=== PATIENT | female | born 1960 | race Caucasian/White ===

== ENCOUNTER 2016-10-13 17:52 | Emergency (ER) | payer BC ==
[2016-10-13 18:14] VITALS: BP 139/83
[2016-10-13] MEDS ORDERED: Famotidine IV* 10 MG/ML 2 ML (20 mg) IV SLOW PU ONE (18:25)
[2016-10-13] MEDS ORDERED: NS 0.9% 1000 ML* 1,000 ML BOLUS ONE (18:26)
[2016-10-13] MEDS ORDERED: Ondansetron INJ* 2 MG/ML VIAL IV ONE (18:26)
--- NOTE | 2016-10-13 18:27 | UC ---
Abdominal Pain Female HPI - HPI Summary HPI Summary: 56 yo female with onset of epigastric pain about noon today n/v x 2 no f/c had less severe episode yesterday on and off spells x months - History of Current Complaint Chief Complaint: UCAbdominalPain Stated Complaint: ABDOMINAL PAIN Time Seen by Provider: 10/13/16 18:07 Hx Obtained From: Patient Onset/Duration: Sudden Onset, Lasting Hours Timing: Constant Severity Initially: Moderate Severity Currently: Moderate Pain Intensity: 6 Pain Scale Used: 0-10 Numeric Location: Epigastric Radiates: Yes Radiates to: Back Character: Colicy, Dull Aggravating Factor(s): Nothing Alleviating Factor(s): Nothing Associated Signs and Symptoms: Positive: Back Pain, Nausea, Vomiting Allergies/Adverse Reactions: Allergies Allergy/AdvReac Type Severity Reaction Status Date / Time Latex Allergy Severe SEVERE RASH Verified 10/13/16 18:07 Penicillins Allergy Severe Blisters Verified 10/13/16 18:07 Sulfa Antibiotics Allergy Severe RASH/BLOTCH Verified 10/13/16 18:07 ES TORITO Inhibitors Allergy CONSTANT Verified 10/13/16 18:07 COUGHING ESPECIALLY AT NIGHT Ampicillin Allergy Blisters Verified 10/13/16 18:07 Niacin Allergy LARGE Verified 10/13/16 18:07 BLOTCHES, SEVERE SKIN ITCHING ANY CILLINS Allergy Severe Blisters Uncoded 01/10/15 09:41 Home Medications: Home Medications FLUoxetine CAP* [Prozac CAP*] 40 mg PO DAILY 10/13/16 [History Confirmed ] Ranitidine TAB (NF) [Zantac TAB (NF)] 1 tab PO PRN 10/13/16 [History] PMH/Surg Hx/FS Hx/Imm Hx Previously Healthy: Yes Cardiovascular History Of: Reports: Hypertension - CONTROL WITH MEDS GI/ History Of: Reports: Kidney Stones - YEARS AGO Psychological History Of: Reports: Anxiety - CONTROL WITH MEDS, Depression - CONTROL WITH MEDS Cancer History Of: Denies: Breast Cancer - Surgical History Surgical History: Yes Surgery Procedure, Year, and Place: SURGERIES FOR ENDOM[place]RIOSIS, [place]. 1994 HYSTERECTOMY WITH BILATERAL S & O, [facility] [place]. 2011 CYST REMOVED FROM LEFT RING FINGER, [facility]. 2014 COLONOSCOPY, [facility] - Family History Known Family History: Positive: Hypertension - Social History Alcohol Use: None Substance Use Type: None Smoking Status (MU): Never Smoked Tobacco Review of Systems Constitutional: Negative Skin: Negative Eyes: Negative ENT: Negative Respiratory: Negative Cardiovascular: Negative Gastrointestinal: Abdominal Pain, Vomiting Genitourinary: Negative Motor: Negative Neurovascular: Negative Musculoskeletal: Negative Neurological: Negative Psychological: Negative All Other Systems Reviewed And Are Negative: Yes Physical Exam Triage Information Reviewed: Yes Appearance: Well-Appearing, No Pain Distress, Well-Nourished Vital Signs: Initial Vital Signs Temp 98.5 F 10/13/16 18:10 Pulse 96 10/13/16 18:10 Resp 18 10/13/16 18:10 BP 139/83 10/13/16 18:10 Pulse Ox 98 10/13/16 18:10 Eyes: Positive: Conjunctiva Clear ENT: Positive: Hearing grossly normal, Pharynx normal. Negative: Nasal congestion, Nasal drainage, Trismus, Muffled/hoarse voice Neck: Positive: Supple, Nontender, No Lymphadenopathy Respiratory: Positive: Lungs clear, Normal breath sounds, No respiratory distress, No accessory muscle use Cardiovascular: Positive: RRR, No Murmur Abdomen Description: Positive: No Organomegaly, Soft. Negative: Nontender, CVA Tenderness (R), CVA Tenderness (L), Guarding Bowel Sounds: Positive: Present Neurological: Positive: Alert Psychological Exam: Normal Skin Exam: Normal Re-Evaluation - Re-Evaluation First Eval Change: Improved - STATES SHE IS MUCH IMPROVED AND WANT TO GO HOME Abd Pain Female Course/Dx - Differential Dx/Diagnosis Provider Diagnoses: abdominal pain. suspect gall bladder disease Discharge - Discharge Plan Condition: Stable Disposition: HOME Prescriptions: Ondansetron TAB* [Zofran Tab*] 4 mg PO Q6H PRN #10 tab PRN Reason: Nausea Patient Education Materials: Gallstones (ED) Referrals: William Alanis MD [Medical Doctor] - As Soon As Possible Lissy De La Cruz NP [Primary Care Provider] - 1 Day () Additional Instructions: BLOOD WORK IS PENDING CALL YOUR PROVIDER IN AM AND LET THEM KNOW HE NOTED GALLSTONES ON YOUR XRAY TO ER FOR INCREASED PAIN PERSISTENT VOMITING FEVER DR ALANIS IS THE SURGEON EXTERNAL GRINDER TOOL Images Front/Back of Body, Lg ([place]): [address] [place], [place] [address]
--- NOTE | 2016-10-13 19:07 | RAD ---
Indication: Epigastric pain. Flat plate of the abdomen demonstrates no free air. No dilated loops of bowel are noted. Layer of calcifications are noted in the right upper quadrant presumably from tiny gallstones. IMPRESSION: Likely layering of small gallstones. Bowel gas pattern is otherwise unremarkable.
[2016-10-13] MEDS ORDERED: Ketorolac INJ* 30 MG/ML 1 ML VIAL IV ONE (19:12)
[2016-10-13] MEDS ORDERED: Ondansetron ODT TAB* 4 MG PO ONE (20:01)
[2016-10-14 11:33] LABS: Hematocrit 41 % (35-47); Hemoglobin 13.4 g/dl (12.0-16.0); Mean Corpuscular HGB Conc 33 g/dl (31-36); Mean Corpuscular Hemoglobin 29 pg (27-31); Mean Corpuscular Volume 87 fL (80-97); Mean Platelet Volume 10 um3 (7.4-10.4); Red Blood Count 4.69 10^6/ul (4.0-5.4); Red Cell Distribution Width 13 % (10.5-15); White Blood Count 8.8 10^3/ul (3.5-10.8)
[2016-10-14 12:05] LABS: Albumin 4.7 g/dL (3.2-5.2); BUN/Creatinine Ratio 26.9 (8-20); Calcium 9.8 mg/dL (8.6-10.3); EGFR African American 79.6 (>60); EGFR Non-African American 61.9 (>60); Globulin 2.5 g/dL (2-4); Potassium 4.8 mmol/L (3.5-5.0); Total Bilirubin 1.8 mg/dL (0.2-1.0); Total Protein 7.2 g/dL (6.4-8.9)
== END 2016-10-13 20:22 | disposition home or self-care (01) ==
LOC: UCEAST 17:52
DX: R10.13 Epigastric pain (principal); R11.2 Nausea with vomiting, unspecified; Z88.0 Allergy status to penicillin; Z88.2 Allergy status to sulfonamides; Z88.8 Allergy status to other drugs, medicaments and biological substances; I10 Essential (primary) hypertension
CPT/HCPCS: 36415; 74020; 80053; 81002; 83690; 85025; 93005; 96360; 96361; 96374; 96375; 99212; A9270-GY; G0463; J1885; J2405

== ENCOUNTER 2016-10-26 11:25 | Inpatient (IN) | payer BC ==
[~2016-10-26 11:25] MED LIST: Buffered Lidocaine 1% SYRIN* 3 ML/SYR SYRINGE INTRADERM ONE; Clindamycin 900 MG IVPREMIX(* 900 MG/50 ML SDV IV ONE; Famotidine TAB* 20 MG PO ONE; GENTAMICIN ADULT IVPB ONE; Ibuprofen TAB* 800 MG PO ONE; Metoclopramide TAB* 10 MG PO ONE; NS 0.9% IVPB ONE; Sodium Citrate/Citric Acid* 15 ML UDC PO ONE
[2016-10-26] MEDS ORDERED: Famotidine TAB* 20 MG ONE (11:41)
[2016-10-26] MEDS ORDERED: Clindamycin 900 MG IVPREMIX(* 900 MG/50 ML SDV IV ONE ×3 (11:41→20:00)
[2016-10-26] MEDS ORDERED: Ibuprofen TAB* 400 MG ONE (11:41)
[2016-10-26] MEDS ORDERED: Metoclopramide TAB* 10 MG ONE (11:41)
[2016-10-26] MEDS ORDERED: Sodium Citrate/Citric Acid* 15 ML UDC ONE (11:41)
[2016-10-26] MEDS ORDERED: Bupivacaine 0.5% W/EPI SDV* 30 ML VIAL ONE ×2 (13:01→19:44)
[2016-10-26] MEDS ORDERED: Scopolamine 1.5 mg* PATCH ONE (13:06)
[2016-10-26] MEDS ORDERED: fentaNYL* 50 MCG/ML 2 ML VIAL (100 MCG VIAL) ONE (13:37)
[2016-10-26] MEDS ORDERED: Atracurium* 10 MG/ML 10 ML VIAL ONE ×2 (13:37→19:47)
[2016-10-26] MEDS ORDERED: Scopolamine 1.5 mg* PATCH TRANSDERM SCH (14:00)
[2016-10-26] MEDS ORDERED: fentaNYL* 50 MCG/ML 2 ML VIAL (100 MCG VIAL) IV PRN ×2 (14:12→22:34)
[2016-10-26] MEDS ORDERED: DiMENhydriNATE IV* 50 MG/ML VIAL IV PUSH PRN (14:12)
[2016-10-26] MEDS ORDERED: Ketorolac INJ* 30 MG/ML 1 ML VIAL IV PRN (14:12)
[2016-10-26] MEDS ORDERED: HYDROcodone/ACETAMIN 5-325 MG* 1 TAB PO PRN (14:12)
[2016-10-26] MEDS ORDERED: Atropine 1MG/ML INJ* 1 ML VIAL ONE (14:26)
[2016-10-26] MEDS ORDERED: Propofol* 10 MG/ML 20 ML BTL IV PUSH ONE ×2 (14:26→21:07)
[2016-10-26] MEDS ORDERED: Ondansetron INJ* 2 MG/ML VIAL ONE ×2 (14:26→21:07)
[2016-10-26] MEDS ORDERED: Lidocaine 2% PF* 5 ML VIAL ONE ×2 (14:26→21:07)
[2016-10-26] MEDS ORDERED: Dexamethasone IV* 4 MG/ML 1 ML (4 MG) ONE (14:26)
[2016-10-26] MEDS ORDERED: DiMENhydriNATE IV* 50 MG/ML VIAL ONE (15:18)
[2016-10-26] MEDS ORDERED: Ketorolac INJ* 30 MG/ML 1 ML VIAL ONE (15:37)
[2016-10-26] MEDS ORDERED: Morphine INJ* 2 MG/ML 1 ML SYRINGE IV PRN (16:41)
[2016-10-26] MEDS ORDERED: LORazepam INJ* 2 MG/ML 1 ML VIAL IV PUSH ONE (16:41)
[2016-10-26] MEDS ORDERED: Ondansetron INJ* 2 MG/ML VIAL IV PRN ×2 (16:41→22:34)
[2016-10-26] MEDS ORDERED: LORazepam INJ* 2 MG/ML 1 ML VIAL IV PUSH PRN (16:41)
[2016-10-26] MEDS ORDERED: Adenosine SYRINGE* 6 MG/2 ML IV PUSH ONE ×2 (17:00)
[2016-10-26 17:01] LABS: Hematocrit 34 % (35-47); Hemoglobin 11.1 g/dl (12.0-16.0); Mean Corpuscular HGB Conc 33 g/dl (31-36); Mean Corpuscular Hemoglobin 29 pg (27-31); Mean Corpuscular Volume 86 fL (80-97); Mean Platelet Volume 8 um3 (7.4-10.4); Red Blood Count 3.91 10^6/ul (4.0-5.4); Red Cell Distribution Width 12 % (10.5-15); White Blood Count 7.1 10^3/ul (3.5-10.8)
[2016-10-26 17:11] LABS: BUN/Creatinine Ratio 23.2 (8-20); Calcium 8.2 mg/dL (8.6-10.3); EGFR African American 112.4 (>60); EGFR Non-African American 87.4 (>60); Magnesium 1.5 mg/dL (1.9-2.7); Potassium 3.5 mmol/L (3.5-5.0)
[2016-10-26] MEDS ORDERED: Magnesium Sulfate 2 GM IV* 2 GM/50 ML BAG IVPB ONE (17:37)
[2016-10-26] MEDS ORDERED: KCL 10 MEQ/50 ML IVPREMIX* 10 MEQ/50 ML BAG IV SCH (18:00)
[2016-10-26 18:08] LABS: Hematocrit 29 % (35-47); Hemoglobin 9.5 g/dl (12.0-16.0)
--- NOTE | 2016-10-26 19:12 | RAD ---
INDICATION: Possible hemoperitoneum. Tachycardia. Hypotension . Status post laparoscopic cholecystectomy COMPARISON: Gallbladder sonogram October 18, 2016 TECHNIQUE: Noncontrast axial source images were acquired from the level hemidiaphragms to the symphysis pubis. Lung bases: There is mild bibasilar atelectasis. Liver: The liver is normal in size. Noncontrast imaging shows no evidence of a hepatic mass or ductal dilatation. Gallbladder: Cholecystectomy. Spleen: The spleen is normal in size. The noncontrast CT appearance is normal. Pancreas: Noncontrast imaging shows no pancreatic mass or ductal dilitation. Adrenal glands: No masses are identified. Kidneys/Bladder: There is no evidence of nephrolithiasis or CT evidence of hydronephrosis. Noncontrast imaging shows no evidence of a renal mass. The bladder is unremarkable.. Adenopathy: There is no evidence of intraperitoneal or retroperitoneal adenopathy. Evaluation is limited without oral contrast. Fluid collections: There is a large amount of perihepatic fluid which is consistent with hemorrhage. This may be partially organized consistent with a developing hematoma. There is minor extension into the right paracolic gutter. There is additional fluid in the perisplenic space and left paracolic gutter. Intraperitoneal fluid/hemorrhage is also present in the dependent portion of the pelvis. Vessels: The aorta and iliac vessels are normal in caliber. There are no significant atherosclerotic changes. The IVC appears normal Pelvic organs: There is hysterectomy. There is no adnexal mass GI tract: Evaluation of the bowel is limited without oral contrast. The stomach, small bowel, and lower GI tract appear grossly normal. There are no obstructive findings. The appendix is visualized and appears normal. Soft tissues: Soft tissue changes anterior abdomen and pelvis consistent with recent left scalp or cholecystectomy. Osseous structures: There are no acute osseous findings. IMPRESSION: SIGNIFICANT INTRA-ABDOMINAL AND INTRAPELVIC FLUID CONSISTENT WITH HEMOPERITONEUM. Findings discussed with attending surgeon following the examination.
--- NOTE | 2016-10-26 19:39 | PN ---
Progress Note - Progress Note Note: The patient developed rapid tachycardia in RR and Hospitalist was consulted. Postop Hb was 11.5. She was given additional 2 L IVF and was transferred to the ICU for monitoring. She got up to void and had syncope and I was called to assess. She was hypotensive to sBP=80-90 and tachycardic to 130-140. A repeat Hb was 9.[address] Abd/Pel without contrast was ordered. This shows hemoperitoneum with blood around the liver and spleen. Based on these findings I have discussed with the patient the plan to return to the OR for laparoscopy, possible laparotomy for control of hemorrhage. I explained the nature of the procedure, risks, benefits, alternatives, and option of no treatment. Risks explained, including, not limited to, further bleeding, infection, pain, scarring, blood clots, pneumonia, visceral injury, and risks of GETA. All her questions were answered. She states understanding and agrees to proceed.
[2016-10-26] MEDS ORDERED: Hetastarch in NS* 500 ML IV ONE (19:44)
[2016-10-26] MEDS ORDERED: KETAMINE HCL* 50 MG/ML 10 ML VIAL ONE (19:47)
[2016-10-26] MEDS ORDERED: Midazolam* 1 MG/ML 5 ML VIAL (5 MG) ONE (19:47)
[2016-10-26] MEDS ORDERED: fentaNYL* 50 MCG/ML 5 ML VIAL (250 MCG VIAL) ONE (19:47)
[2016-10-26 21:04] LABS: Hematocrit 27 % (35-47); Hemoglobin 9.1 g/dl (12.0-16.0)
[2016-10-26] MEDS ORDERED: Phenylephrine INJ* 10 MG/ML 1 ML VIAL (10 MG) ONE (21:07)
[2016-10-26] MEDS ORDERED: PROCHLORPERAZINE INJ 5 MG/ML 2 ML VIAL ONE (21:07)
[2016-10-26] MEDS ORDERED: Succinylcholine* 20 MG/ML 10 ML VIAL ONE (21:07)
[2016-10-26] MEDS ORDERED: Neostigmine Methylsulfate* 2 MG/2 ML SYRINGE ONE (21:07)
[2016-10-26] MEDS ORDERED: Glycopyrrolate IV* 0.2 MG/ML 1 ML VIAL ONE (21:07)
[2016-10-26] MEDS: Melatonin [Melatonin] 10 MG PO SCH (21:27)
[2016-10-26] MEDS ORDERED: Flumazenil* 0.1 MG/ML 5 ML MDV ONE (21:49)
[2016-10-26] MEDS ORDERED: Naloxone* 0.4 MG/ML 10 ML VIAL ONE (21:53)
[2016-10-26] MEDS ORDERED: Heparin VIAL(*) 5000 UNITS/ML VIAL (FIVE THOUSAND) SUBCUT SCH (22:00)
--- NOTE | 2016-10-26 22:06 | CONS ---
CONSULTATION REPORT: DATE OF CONSULT: 10/26/16 PRIMARY CARE PROVIDER: Lissy De La Cruz NP ATTENDING PHYSICIAN WHILE IN THE HOSPITAL: Dr. Negrito Blank (report dictated by Aniceto Mayfield NP). REQUESTING PHYSICIAN FOR CONSULT: Dr. Paulson. REASON FOR MEDICAL CONSULT: Evaluation of tachycardia. HISTORY OF PRESENT ILLNESS: I refer you to Dr. Paulson' H and P for further details. In short, Ms. Canseco is a 56-year-old female patient. She carries a history of hyperlipidemia, hypertension, anxiety, has a history of GERD and depression. She came in to Dr. Paulson' service today for an elective laparoscopic cholecystectomy. She had been seen by her primary. She had frequent gallbladder attacks over the last 7 to 8 months. A week prior to being seen on October 21, she had had some brownish urine and having an attack 6 hours and went to [facility] in [place]. She was treated with IV hydration , antiemetics. She was found to have mild elevation in her lipase and LFTs, but at that time, she was feeling better. She presented to Dr. Paulson' office after referral from her primary. It was ultimately felt that she probably passed a gallstone and it was felt that she would require laparoscopic cholecystectomy, which she underwent today with Dr. Paulson. Unfortunately, in the PACU, it was noted that her heart rate was in the 140s and we were asked to evaluate in consult. She denies having any chest pain currently. She denies having any shortness of breath. She says she has not had any cardiac symptoms such as a heart attack, stroke. She has never had any stents in her heart. She says she does not feel lightheaded. She does state that she feels very anxious. Of note, she also was given a dose of atropine in the OR. In addition to this, was also placed on scopolamine patch. Because of this tachycardia, we were asked to evaluate in consult. PAST MEDICAL HISTORY: Significant for: 1. Hyperlipidemia. 2. Hypertension. 3. Depression with anxiety. 4. Osteoarthritis. PAST SURGICAL HISTORY: She has had: 1. Hysterectomy. 2. Laparoscopies for endometriosis. 3. Appendectomy. HOME MEDICATIONS: Include: 1. Zantac 1 tablet p.o. daily as needed. 2. Melatonin 10 mg daily. 3. Ibuprofen 600 mg daily. 4. Fenofibrate 145 mg daily. 5. Prozac 40 mg daily. 6. Estradiol 0.5 mg p.o. at bedtime. 7. Vitamin D 1000 units daily. 8. Vitamin C 500 mg p.o. daily. 9. Amlodipine 5 mg p.o. daily. 10. Xanax 0.25 mg at bedtime as needed. ALLERGIES TO MEDICATIONS: Include PENICILLIN, SULFA, TORITO INHIBITOR, AMPICILLIN , NIACIN. FAMILY HISTORY: Reviewed and noncontributory. SOCIAL HISTORY: She does not smoke or drink alcohol. She is . Surrogate decision maker is her . REVIEW OF SYSTEMS: There is no documented fever. She denied having any significant weight change. There was no double vision. There is no ear discharge. She denies having any rhinorrhea. There is no sore throat. No thyroid enlargement. Denies having any chest pain. There is no orthopnea. There is no nocturnal dyspnea. There is some right upper quadrant abdominal pain. She does admit to having a little bit of nausea. There is no dysuria. No loss of consciousness. No pruritus and no skin ulcerations. Review of 14 systems completed, all others negative. PHYSICAL EXAM: Reveals vital signs of blood pressure of 120/70 with a pulse of 135, respirations 16, O2 sat 99% on 2 L, and her temperature was 97.7. Generally, at this time, Ms. Canseco is a 56-year-old female patient. She is sitting in the PACU. She does not appear to be in any acute distress. HEENT: Head atraumatic and normocephalic. Eyes: EOMs are intact. Sclerae are anicteric and not pale. Throat: Oral mucosa appears to be moist. No oropharyngeal erythema. Neck was supple. Her lungs are clear to auscultation bilaterally. Heart: Sounds S1, S2. She is tachycardic. Abdomen: Bowel sounds were hypoactive. She was tender in the right upper quadrant. She had incisions to her abdomen which were Steri-Strip'd and dry and intact. Extremities: Pulses were 2+ throughout. She is able to move all 4 extremities with 5/5 strength. Neurologically, the patient is awake, she is alert, she is oriented x3. Tongue midline. Manager [employer] are equal. No gross focal deficits. Her skin is intact. DIAGNOSTIC STUDIES/LAB DATA: From 13 of October revealed WBC of 8.8, RBC of 4.69, hemoglobin 13.4, hematocrit of 41, platelet count 318. Sodium was 140, potassium 4.0, chloride of 103, bicarb 30, BUN 23, creatinine of 0.85, glucose was 98. AST 20,. She had an EKG obtained today which showed a sinus tachycardia, rate of 131. Preop EKG shows a normal sinus rhythm with a rate of 90. There were no ST elevations or T-wave inversions noted. Old medical records were reviewed. ASSESSMENT AND PLAN: Ms. Canseco is a 56-year-old female patient coming in to Dr. Paulson' service today for an elective laparoscopic cholecystectomy. Unfortunately, postoperatively, it was noted that she was tachycardic. Hospitalist service was asked to evaluate in consult. Recommendations at this point are: 1. Status post laparoscopic cholecystectomy: I will defer the management to Dr. Paulson and his team. 2. Tachycardia: The etiology of this is multifactorial. Certainly, it could be drug related secondary to the atropine and also secondary to the scopolamine patch, could be anxiety as well as she is stating that she feels very anxious. She says that her pain is well controlled. I think at this point we will hydrate her. We will send off labs, BMP, check a magnesium, check a troponin, and we will also get a CBC as well to make sure she is not hypovolemic or bleeding. There was no report of such in the OR notes and we will continue to follow her. She did get some adenosine here in the PACU, which slowed her heart rate down, but she went back into sinus tachycardia, so we have to treat the underlying cause. I do not think there is any need for a pulmonary embolism workup at this point as she is not hypoxic or short of breath. We will need to monitor her and hydrate her and see if she calms down. I think give her a little bit of Ativan, because she is stating to me that she feels very anxious. 3. Hyperlipidemia: Continue meds as prescribed. She is on fenofibrate. 4. Hypertension: We will continue her Norvasc. 5. Depression and anxiety: Ativan p.r.n. has been ordered. We will continue her meds as prescribed. 6. Osteoarthritis: Follow with her primary. 7. DVT prophylaxis: I will defer to the primary team. I did order SCDs. 8. Code status: Full code. 9. Fluids, electrolytes, and nutrition: I will defer to the primary team. We would recommend a regular diet. TIME SPENT: On the consult was 60 minutes; greater than half the time was spent [id number] with the patient obtaining my history and physical, other half the time spent going over the plan of care with the patient and implementing plan of care. I did discuss the plan of care with my attending, Dr. Blank; he is in agreement. ANICETO MAYFIELD NP CC: Lissy De La Cruz NP; Dr. Paulson* [id number]/[facility] #: [id number] MTDD
[2016-10-26] MEDS: NS 0.9% 1000 ML* 1,000 ML IV SCH (23:10)
[2016-10-26] MEDS: KCL premix 10MEQ/50 ML x 3 RUNS IV SCH (23:42)
[2016-10-27] MEDS: KCL premix 10MEQ/50 ML x 3 RUNS IV SCH ×2 (01:23→02:33)
[2016-10-27] MEDS: Fenofibrate(NF) 145 MG TAB PO SCH ×2 (01:31→21:09)
[2016-10-27 01:56] LABS: Hematocrit 29 % (35-47); Hemoglobin 9.5 g/dl (12.0-16.0)
[2016-10-27] MEDS: Acetaminophen TAB* 325 MG PO PRN ×3 (02:39→21:08)
[2016-10-27 05:03] LABS: Hematocrit 27 % (35-47); Hemoglobin 9.2 g/dl (12.0-16.0)
[2016-10-27] MEDS: NS 0.9% 1000 ML* 1,000 ML IV SCH (08:52)
[2016-10-27] MEDS: FLUoxetine CAP* 20 MG PO SCH (08:54)
[2016-10-27] MEDS ORDERED: amLODIPine TAB* 5 MG PO SCH (09:00)
--- NOTE | 2016-10-27 10:30 | PN ---
Progress Note - Progress Note SOAP: Subjective: Mild abdominal pain. No nausea/vomiting. No CP/SOB/dizziness/palpitations. Objective: Vital Signs Temp 98.0 F 10/27/16 10:18 Pulse 105 10/27/16 10:18 Resp 18 10/27/16 10:18 BP 127/80 10/27/16 10:18 Pulse Ox 94 10/27/16 10:18 Intake & Output 10/26/16 10/27/16 10/27/16 18:59 06:59 18:59 Intake Total 1800 6750 3503 Output Total 425 2950 1275 Balance 1375 3800 2228 Weight 140 lb 144 lb 9.972 oz Intake: IV Fluids 1800 6550 3443 CLINDAMYCIN 900MG 50 HETASTARCH 500 LR 1800 3000 NS 3000 3443 Oral 200 60 Output: Urine 425 [place] 2950 1275 NAD, awake alert, sitting up in bed. Abd: incis c/d/i; soft; tender on R side. Laboratory Results - last 24 hr 10/26/16 10/26/16 10/26/16 16:28 16:28 18:00 WBC 7.1 RBC 3.91 L Hgb 11.1 L 9.5 L Hct 34 L 29 L MCV 86 MCH 29 MCHC 33 RDW 12 Plt Count 299 MPV 8 Neut % (Auto) 78.7 Lymph % (Auto) 15.2 L [place] % (Auto) 3.2 Eos % (Auto) 1.8 Baso % (Auto) 1.1 Absolute Neuts (auto) 5.6 Absolute Lymphs (auto) 1.1 Absolute Monos (auto) 0.2 Absolute Eos (auto) 0.1 Absolute Basos (auto) 0.1 Absolute Nucleated RBC 0 Nucleated RBC % 0 Sodium 140 Potassium 3.5 Chloride 105 Carbon Dioxide 27 Anion Gap 8 BUN 16 Creatinine 0.69 Est GFR ( Amer) 112.4 Est GFR (Non-Af Amer) 87.4 BUN/Creatinine Ratio 23.2 H Glucose 159 H Calcium 8.2 L Magnesium 1.5 L Troponin I 0.00 Blood Type Antibody Screen Crossmatch 10/26/16 10/26/16 10/27/16 18:00 20:55 01:50 WBC RBC Hgb 9.1 L 9.5 L Hct 27 L 29 L MCV MCH MCHC RDW Plt Count MPV Neut % (Auto) Lymph % (Auto) [place] % (Auto) Eos % (Auto) Baso % (Auto) Absolute Neuts (auto) Absolute Lymphs (auto) Absolute Monos (auto) Absolute Eos (auto) Absolute Basos (auto) Absolute Nucleated RBC Nucleated RBC % Sodium Potassium Chloride Carbon Dioxide Anion Gap BUN Creatinine Est GFR ( Amer) Est GFR (Non-Af Amer) BUN/Creatinine Ratio Glucose Calcium Magnesium Troponin I Blood Type O Negative Antibody Screen Negative Crossmatch See Detail 10/27/16 04:00 WBC RBC Hgb 9.2 L Hct 27 L MCV MCH MCHC RDW Plt Count MPV Neut % (Auto) Lymph % (Auto) [place] % (Auto) Eos % (Auto) Baso % (Auto) Absolute Neuts (auto) Absolute Lymphs (auto) Absolute Monos (auto) Absolute Eos (auto) Absolute Basos (auto) Absolute Nucleated RBC Nucleated RBC % Sodium Potassium Chloride Carbon Dioxide Anion Gap BUN Creatinine Est GFR ( Amer) Est GFR (Non-Af Amer) BUN/Creatinine Ratio Glucose Calcium Magnesium Troponin I Blood Type Antibody Screen Crossmatch Assessment: POD#1 s/p lap velia and return to OR for postop hemorrhage. No evidence for additional bleeding. Plan: Transfer to [facility]. Diet as tolerated. Ambulate. F/u additional H/H this afternoon. Possible d/c later today or in AM. D/w patient and son.
[2016-10-27 13:17] LABS: Hematocrit 26 % (35-47); Hemoglobin 8.8 g/dl (12.0-16.0)
--- NOTE | 2016-10-27 14:12 | OP ---
DATE OF OPERATION: 10/26/16 - ROOM #332 DATE OF : 56 SURGEON: Jonel Paulson MD SOLE MOLDING MACHINE OPERATOR: OSCAR Drake ANESTHESIOLOGIST: Michael Brown MD ANESTHESIA: General endotracheal. PRE-OP DIAGNOSIS: Symptomatic cholelithiasis. POST-OP DIAGNOSIS: Symptomatic cholelithiasis. OPERATIVE PROCEDURE: Laparoscopic cholecystectomy. ESTIMATED BLOOD LOSS: Minimal. IV FLUIDS: Crystalloid. SPECIMENS: Gallbladder. DRAINS: None. COMPLICATIONS: None. COUNTS: The instrument, needle, and sponge counts were correct. DESCRIPTION OF PROCEDURE: The patient was brought to the operating room, placed on table supine. Sequential compression devices were placed on both lower extremities. General anesthesia was administered. She received appropriate intravenous antibiotics. Her abdomen was prepped and draped in the usual sterile fashion. Time-out was performed. Local anesthetic was infiltrated into the skin and soft tissue surrounding the umbilicus. A transumbilical vertical incision was created using an open technique. A 5 mm trocar was placed and carbon dioxide was insufflated to a pressure of 15 mmHg. Under direct visualization, 5 mm trocars were placed in the subxiphoid position and two additional 5 mm trocars in the right upper quadrant. The initial trocar was exchanged for 12 mm trocar. The gallbladder appeared to be uninflamed. It was grasped at the fundus and retracted superiorly and the infundibulum is identified. It was grasped and retracted laterally and inferiorly. The peritoneum investing the gallbladder was incised with cautery, dissected free to reveal the infundibular-cystic duct junction as well as the cystic artery. Each structure was bluntly dissected out. Critical views obtained. The cystic artery was doubly clipped and divided. The cystic duct was doubly clipped and divided. The gallbladder was freed from its attachment to the liver bed using the cautery and staying in an avascular plane. Once the gallbladder was freed, it was placed into a retrieval bag and retrieved through the umbilical site. Inspection of the area of the dissection revealed the clips to be intact, the hemostasis was excellent. The ports were removed and carbon dioxide was released. The umbilical wound was closed with 0 Polysorb in a [id number] fashion to approximate the fascia. The skin incisions were all closed with 4-0 Monocryl in a subcuticular fashion. Steri- Strips were applied. The patient tolerated the procedure well and was extubated and transferred to recovery room in stable condition. CC: Kate Haywood MD* [id number]/[facility] #: [id number] MTDD
--- NOTE | 2016-10-27 16:28 | SURGPN ---
Subjective - Introduction -: Reports doing very well. Denies pain, N/V, fever or chills. No headache, dizziness or chest pain. Wants to go home if she could. - Medications -: Active Medications Generic Name Dose Route Start Last Admin Trade Name Freq PRN Reason Stop Dose Admin Acetaminophen 650 mg 10/26/16 16:41 10/27/16 11:24 Tylenol Tab* PO 650 mg Q4H PRN Administration FEVER/PAIN Fenofibrate 145 mg 10/26/16 21:00 10/27/16 01:31 Tricor(Nf) PO Not Given BEDTIME [facility] Protocol Fluoxetine HCl 40 mg 10/27/16 09:00 10/27/16 08:54 Prozac Cap* PO 40 mg DAILY NORA Administration Sodium Chloride 1,000 mls @ 125 mls/hr 10/26/16 16:45 10/27/16 08:52 Ns 0.9% 1000 Ml* IV 125 mls/hr PER RATE NORA Administration Lorazepam 1 mg 10/26/16 16:41 Ativan Inj* IV PUSH Q6H PRN ANXIETY Morphine Sulfate 2 mg 10/26/16 16:41 Morphine Inj (Syringe)* IV Q4H PRN PAIN - MILD Melatonin [Melatonin 10 mg 10/26/16 18:00 10/26/16 21:27 ] 10 Mg PO Not Given QPM [facility] Ondansetron HCl 4 mg 10/26/16 16:41 10/27/16 05:05 Zofran Inj* IV 4 mg Q6H PRN Administration NAUSEA Objective - Objective -: Awake and alert, sitting in bed, appears comfortable and in NAD. - Intake and Output -: Intake & Output 10/25/16 10/26/16 10/27/16 10/28/16 06:59 06:59 06:59 06:59 Intake Total 8550 4031 Output Total 3375 2275 Balance 5175 1756 Weight 144 lb 9.972 oz Intake: IV Fluids 8350 3443 CLINDAMYCIN 900MG 50 HETASTARCH 500 LR 4800 NS 3000 3443 IVPB 408 NS 408 Oral 200 180 Output: Urine 425 [place] 2950 2275 Surgical Physical Exam - Comments -: Vitals reviewed, pt afebrile. Lungs CTA bilat. Abdomen soft, non-tender and non-distended. Incisions clean, dry and intact. Ext. no edema. Assessment and Plan - Assessment -: a 56 y/o female, s/p laparoscopic cholecystectomy, complicated with post- operative bleeding, clinically stable. - Plan Surgical Plan of Care: Advance Diet, Increase Activity - Advance diet. Additional Comments: Advance diet. D/C price cath. D/C IVF and safesite IV Increase activity. Plan to d/c to home tomorrow morning.
--- NOTE | 2016-10-27 17:50 | PN ---
Subjective Date of Service: 10/27/16 Interval History: Patient seen this evening. Says she is feeling well overall. Abdomen is a little tender but has not really needed pain medications. Ambulated around the unit. Has not had BM but feels bowels moving. No fever or chills. Asking at what heart rate should she be worried is too fast. Family History: Unchanged from Admission Social History: Unchanged from Admission Past Medical History: Unchanged from Admission Objective Active Medications: Acetaminophen (Tylenol Tab*) 650 mg PO Q4H PRN Fenofibrate (Tricor(Nf)) 145 mg PO BEDTIME NORA Fluoxetine HCl (Prozac Cap*) 40 mg PO DAILY NORA Sodium Chloride (Ns 0.9% 1000 Ml*) 1,000 mls @ 125 mls/hr IV PER RATE NORA Lorazepam (Ativan Inj*) 1 mg IV PUSH Q6H PRN Morphine Sulfate (Morphine Inj (Syringe)*) 2 mg IV Q4H PRN Melatonin [Melatonin (] 10 Mg) 10 mg PO QPM NORA Ondansetron HCl (Zofran Inj*) 4 mg IV Q6H PRN Vital Signs 10/26/16 10/26/16 10/26/16 17:50 17:55 17:56 Temperature 97.6 F 97.6 F Pulse Rate 140 140 134 Respiratory 18 18 19 Rate Blood Pressure 104/85 104/85 84/45 (mmHg) O2 Sat by Pulse 96 96 96 Oximetry 10/26/16 10/26/16 10/26/16 18:00 18:01 18:04 Temperature Pulse Rate 122 120 118 Respiratory 24 23 18 Rate Blood Pressure 93/65 81/60 (mmHg) O2 Sat by Pulse 92 95 98 Oximetry 10/27/16 10/27/16 10/27/16 10:18 10:28 15:35 Temperature 98.0 F 98 F 98.4 F Pulse Rate 105 105 106 Respiratory 18 18 15 Rate Blood Pressure 127/80 127/80 139/82 (mmHg) O2 Sat by Pulse 94 94 94 Oximetry Oxygen Devices in Use Now: None Appearance: Middle-aged, F, laying in bed in NAD Eyes: No Scleral Icterus Ears/Nose/Mouth/Throat: Mucous Membranes Moist Neck: NL Appearance and Movements; NL JVP Respiratory: Symmetrical Chest Expansion and Respiratory Effort, Clear to Auscultation Cardiovascular: NL Sounds; No Murmurs; No JVD, RRR Abdominal: - - Soft, non-distended, mild TTP, steri strips over surgical wounds , no erythema Lymphatic: No Cervical Adenopathy Extremities: No Edema Neurological: Alert and Oriented x 3 Result Diagrams: 10/27/16 13:00 10/26/16 16:28 Microbiology and Other Data: Microbiology 10/26/16 19:35 Nasal Screen MRSA (PCR)([facility]) - Final Nasal Mrsa Negative Assess/Plan/Problems-Billing Assessment: Post-op tachycardia 2/2 acute blood loss anemia from hemoperitoneum after lap velia in a 56 yo F. Returned to OR with Dr. Paulson on 10/26 for evacuation and clipping of branch of gastric artery (presumed source) Tachycardia still present at times but overall improved, has been mostly in 90s- 100s. Hb has been stable. Surgery plans for potential discharge tomorrow.
--- NOTE | 2016-10-27 20:19 | OP ---
DATE OF OPERATION: 10/26/16 - ROOM #332 DATE OF : 56 SURGEON: Jonel Paulson MD HEAD SAMPLER: Heriberto Owen MD ANESTHESIOLOGIST: Dr. Malloy. ANESTHESIA: General endotracheal. PRE-OP DIAGNOSIS: Hemoperitoneum. POST-OP DIAGNOSIS: Hemoperitoneum. OPERATIVE PROCEDURE: Laparoscopy, peritoneal lavage, evacuation of hemoperitoneum, and ligation of blood vessel. ESTIMATED BLOOD LOSS: 1250 mL. IV FLUIDS: 4 L of crystalloid, 500 mL Hextend and 1.5 units of packed red blood cells. SPECIMEN: None. DRAINS: None. COMPLICATIONS: None. COUNT: The instrument, needle, and sponge counts were correct. DESCRIPTION OF PROCEDURE: The patient was brought emergently to the operating room. She was placed on the table supine. Sequential compression devices were placed on both lower extremities. General anesthesia was administered. The abdomen was prepped and draped in the usual sterile fashion. Time-out was performed. The abdomen was entered through the previous umbilical wound and a 12-mm trocar was placed and carbon dioxide was insufflated to a pressure of 15 mmHg. A 5-mm 30 degree angle laparoscope was introduced. There was noted to be blood and clot in the upper abdomen surrounding the liver. A 12-mm trocar was placed in the subxiphoid position and two 5-mm trocars were placed through the previous wounds in the right upper quadrant. 10 mm suction was used to remove the hemoperitoneum from the abdomen and after evacuating blood and clots from around the liver and also from the left upper quadrant, this had amounted to 1250 mL. Inspection of the area of previous dissection revealed clips to be intact on the cystic duct. Within a veil of areolar tissue adjacent to this was a series of clips, which were noted to be on pulsatile vessel. There was one branch of the vessel, which was not clipped, but was not actively bleeding at that time; however, as this appeared to be a branch of the cystic artery that was unclipped, it was felt this was likely the source of bleeding. Therefore, this was doubly clipped. Inspection of the remaining area of dissection revealed no evidence of bleeding. Copious lavage was then performed through the right upper quadrant, left upper quadrant, and in the pelvis, although there are numerous adhesions in the pelvis, which limited the evacuation of the hemoperitoneum at this site. Subsequently, inspection of the area of previous dissection again revealed clips to be intact. Hemostasis was excellent. Ports were removed under direct visualization, and carbon dioxide was released. Umbilical wound was closed with 3-0 Polysorb in [id number] to approximate the fascia. Subxiphoid wound was closed with 3-0 Polysorb in an interrupted fashion to close the fascia. Skin incisions were closed with 4-0 Monocryl in a subcuticular fashion. Steri-Strips were applied. The patient remained intubated and was transferred to the recovery room in a stable condition. CC: Kate Haywood MD * [id number]/[facility] #: [id number] [facility]
[2016-10-27] MEDS: Melatonin [Melatonin] 10 MG PO SCH (21:10)
[2016-10-27] MEDS ORDERED: Zolpidem TAB* 5 MG PO ONE (23:00)
[2016-10-28] MEDS: Acetaminophen TAB* 325 MG PO PRN (06:55)
[2016-10-28] MEDS: FLUoxetine CAP* 20 MG PO SCH (07:49)
[2016-10-28 07:53] VITALS: BP 140/83
--- NOTE | 2016-10-28 16:12 | PN ---
Progress Note - Progress Note SOAP: DISCHARGE NOTE Subjective: feels well,wants to go home,tolerating low fat diet,no n/v;voiding large,no dizziness [] Objective:well appearing;lungs:clear bilaterally;heart RRR;abd:+bs,soft, nondistended;all incisions C/D/I,no drainage or erythema;ext:nontender,no edema Vital Signs Temp 98.7 F 10/28/16 07:25 Pulse 112 10/28/16 07:25 Resp 18 10/28/16 08:00 BP 140/83 10/28/16 07:25 Pulse Ox 100 10/28/16 07:25 Intake & Output 10/27/16 10/28/16 10/28/16 18:59 06:59 18:59 Intake Total 4151 680 100 Output Total 3275 2850 400 Balance 876 -2170 -300 Intake: IV Fluids 3443 NS 3443 IVPB 408 NS 408 Oral 300 680 100 Output: Urine 2850 400 [place] 3275 Other: # Bowel Movements 0 Laboratory Results - last 24 hr 10/26/16 18:00 Crossmatch See Detail Laboratory Last Values WBC 7.1 10^3/ul (3.5-10.8) 10/26/16 16:28 RBC 3.91 10^6/ul (4.0-5.4) L 10/26/16 16:28 Hgb 8.8 g/dl (12.0-16.0) L 10/27/16 13:00 Hct 26 % (35-47) L 10/27/16 13:00 MCV 86 fL (80-97) 10/26/16 16:28 MCH 29 pg (27-31) 10/26/16 16:28 MCHC 33 g/dl (31-36) 10/26/16 16:28 RDW 12 % (10.5-15) 10/26/16 16:28 Plt Count 299 10^3/ul (150-450) 10/26/16 16:28 MPV 8 um3 (7.4-10.4) 10/26/16 16:28 Neut % (Auto) 78.7 % (38-83) 10/26/16 16:28 Lymph % (Auto) 15.2 % (25-47) L 10/26/16 16:28 Crook % (Auto) 3.2 % (1-9) 10/26/16 16:28 Eos % (Auto) 1.8 % (0-6) 10/26/16 16:28 Baso % (Auto) 1.1 % (0-2) 10/26/16 16:28 Absolute Neuts (auto) 5.6 10^3/ul (1.5-7.7) 10/26/16 16:28 Absolute Lymphs (auto) 1.1 10^3/ul (1.0-4.8) 10/26/16 16:28 Absolute Monos (auto) 0.2 10^3/ul (0-0.8) 10/26/16 16:28 Absolute Eos (auto) 0.1 10^3/ul (0-0.6) 10/26/16 16:28 Absolute Basos (auto) 0.1 10^3/ul (0-0.2) 10/26/16 16:28 Absolute Nucleated RBC 0 10^3/ul 10/26/16 16:28 Nucleated RBC % 0 10/26/16 16:28 Sodium 140 mmol/L (133-145) 10/26/16 16:28 Potassium 3.5 mmol/L (3.5-5.0) 10/26/16 16:28 Chloride 105 mmol/L (101-111) 10/26/16 16:28 Carbon Dioxide 27 mmol/L (22-32) 10/26/16 16:28 Anion Gap 8 mmol/L (2-11) 10/26/16 16:28 BUN 16 mg/dL (6-24) 10/26/16 16:28 Creatinine 0.69 mg/dL (0.51-0.95) 10/26/16 16:28 Est GFR ( Amer) 112.4 (>60) 10/26/16 16:28 Est GFR (Non-Af Amer) 87.4 (>60) 10/26/16 16:28 BUN/Creatinine Ratio 23.2 (8-20) H 10/26/16 16:28 Glucose 159 mg/dL (70-100) H 10/26/16 16:28 Calcium 8.2 mg/dL (8.6-10.3) L 10/26/16 16:28 Magnesium 1.5 mg/dL (1.9-2.7) L 10/26/16 16:28 Troponin I 0.00 ng/mL (<0.04) 10/26/16 16:28 Blood Type O Negative 10/26/16 18:00 Antibody Screen Negative 10/26/16 18:00 Crossmatch See Detail 10/26/16 18:00 [] Assessment:Stable POD#2 s/p lap cholecystectomy,s/p evacuation of hemoperitoneum [] Plan:Discussed with Dr Paulson;discharge home today;discharge instructions reviewed,followup in our office 11/05/16 or sooner if concerns;no narcotic rx given,patient prefers to use Tylenol OTC. []
--- NOTE | 2016-10-29 04:15 | DS ---
DISCHARGE SUMMARY: DATE OF ADMISSION: 10/26/16 DATE OF DISCHARGE: 10/28/16 ATTENDING PHYSICIAN: Jonel Paulson MD HOSPITAL COURSE: Please refer to admission and history for admission details. The patient was taken to the operating room on 10/26/16 and underwent laparoscopic cholecystectomy. In the recovery room, she had rapid tachycardia. She has a hospitalist consult and was initially treated with IV hydration. She was transferred to the ICU. She was noted to have decreasing H/H and CT scan was perfored confirming hemoperitoneum. She was taken emergently back to the operating room by Dr. Paulson and underwent laparoscopy, peritoneal lavage, evacuation of hemoperitoneum and ligation of blood vessel. Her estimated blood loss was 1250 mL; she received 1-1/2 units of packed red blood cells. Her hemoglobin stabilized at 8.8 today with a hematocrit of 26. On day 1 postoperatively, she was clinically stable. Her vital signs were stable. She was advancing her diet and up walking. Today, she is well appearing and in no acute distress; she is tolerating a low fat diet; she is walking in the halls without any dizziness; she denies any nausea or vomiting and is passing flatus. Her pain is minimal. She is voiding large amounts of urine. PHYSICAL EXAMINATION: Vital Signs: Temperature 98.7, blood pressure 140/83, pulse 112, respiratory rate 16, O2 saturation on room air 100%. Lungs: Breath sounds bilaterally clear and equal. Heart: Regular rate and rhythm, mild tachycardia. Abdomen: Soft, minimally bloated; active bowel sounds; laparoscopic incision site is clean, dry, and intact with Steri-Strips. No erythema or drainage. No active bleeding. Extremities: Warm without edema or skin ulcerations. IMPRESSION: Status post laparoscopic cholecystectomy with an emergent return to the operating room for hemoperitoneum with evacuation of the hemoperitoneum and ligation of the blood vessel. PLAN: Discharge home today. She is doing well. She will follow a low fat diet ; discharge instructions were reviewed with her. She wishes to use only over- the- counter Tylenol for incisional discomfort; she will be scheduled to be seen in the office on 11/05/16, and knows to call sooner with any concerns. RADHA DALEY NP CC: Jonel Paulson MD, [facility]; Kate Haywood MD * [id number]/[facility] [place] #: [id number] [facility] [facility] CENTERCristal
== END 2016-10-28 10:45 | disposition home or self-care (01) | DRG 263 ==
LOC: OR 11:25 → ICU 16:39 → SSU 10-27 09:04 → OBSVTOIN 10-27 10:00
PROVIDERS: ADMIT Surgery; ATTEND Surgery
PROC: 0W3G4ZZ Control Bleeding in Peritoneal Cavity, Percutaneous Endoscopic Approach (ICD-10-PCS; 2016-10-26)
PROC: 30233N1 Transfusion of Nonautologous Red Blood Cells into Peripheral Vein, Percutaneous Approach (ICD-10-PCS; 2016-10-26)
PROC: 0FT44ZZ Resection of Gallbladder, Percutaneous Endoscopic Approach (ICD-10-PCS; principal; 2016-10-26 13:15)
DX: K80.20 Calculus of gallbladder without cholecystitis without obstruction (principal); K66.1 Hemoperitoneum; I97.89 Other postprocedural complications and disorders of the circulatory system, not elsewhere classified; D62 Acute posthemorrhagic anemia; E78.5 Hyperlipidemia, unspecified; I10 Essential (primary) hypertension; F32.9 Major depressive disorder, single episode, unspecified; F41.9 Anxiety disorder, unspecified; M19.90 Unspecified osteoarthritis, unspecified site; Z80.0 Family history of malignant neoplasm of digestive organs; Z80.3 Family history of malignant neoplasm of breast; Z79.1 Long term (current) use of non-steroidal anti-inflammatories (NSAID); Z88.0 Allergy status to penicillin; Z88.1 Allergy status to other antibiotic agents; Z88.2 Allergy status to sulfonamides; Z79.899 Other long term (current) drug therapy; Z80.42 Family history of malignant neoplasm of prostate; Z83.3 Family history of diabetes mellitus; Z88.8 Allergy status to other drugs, medicaments and biological substances; Z82.49 Family history of ischemic heart disease and other diseases of the circulatory system; R00.0 Tachycardia, unspecified
CPT/HCPCS: 36415; 74176; 80048; 83735; 84484; 85014; 85018; 85025; 86850; 86900; 86901; 86922; 87641; 88304; 93005; A9270-GY; C1776; J0153; J0330; J0461; J0780; J1100; J1240; J1580; J1885; J2060; J2250; J2310; J2405; J2704; J3010; J3480; P9040